=== PATIENT | female | born 1975 | race Caucasian/White ===

== ENCOUNTER → 2023-07-08 07:41 | Outpatient (REF) | payer OTHER, SELFPAY ==
[2023-07-08 08:28] LABS: % Basophils 0.4 % (0-2); % Eosinophils 4.3 % (0-6); % Immature Granulocytes 0.4 % (0-0.5); % Lymphocytes 37.1 % (20.5-51.1); % Monocytes 9.9 % (1.7-9.3); % Neutrophils 47.9 % (42.2-75.2); Absolute Eosinophils 0.2 10^3/uL (0-0.7); Absolute Lymphocytes 1.8 10^3/uL (1.2-3.4); Absolute Monocytes 0.5 10^3/uL (0.1-0.6); Absolute Neutrophils 2.4 10^3/uL (1.4-6.5); Hematocrit 40.8 % (37.0-47.0); Hemoglobin 13.6 g/dL (12.0-16.0); Mean Corp Hgb Conc. 33.3 g/dL (33.0-37.0); Mean Corpuscular Hgb 30.6 pg (27.0-31.0); Mean Corpuscular Volume 91.9 fL (81.0-99.0); Mean Platelet Volume 10.9 fL (7.4-10.4); Nucleated Red Blood Cells % 0 %; Platelet Count 251 10^3/uL (130-400); Red Blood Cell Count 4.44 10^6/uL (4.20-5.40); Red Cell Dist. Width 11.6 % (11.5-14.5); White Blood Cell Count 4.9 10^3/uL (4.8-10.8)
[2023-07-08 09:06] LABS: ALT (SGPT) 15 U/L (0-35); AST (SGOT) 25 U/L (14-36); Albumin 4.1 g/dl (3.5-5.0); Alkaline Phosphatase 73 U/L (38-126); Blood Urea Nitrogen 13 mg/dl (7-17); Calcium 9.3 mg/dl (8.4-10.2); Carbon Dioxide 28 mmol/L (22-30); Chloride 102 mmol/L (98-107); Glucose 84 mg/dl (70-99); HDL Cholesterol 76 mg/dl; LDL Cholesterol, Calculated 88 mg/dl; Potassium 4.4 mmol/L (3.5-5.1); Sodium 139 mmol/L (135-145); Total Bilirubin 0.5 mg/dl (0.2-1.3); Total Cholesterol 188 mg/dl (50-199); Total Protein 6.7 g/dl (6.3-8.2); Triglyceride 121 mg/dl (10-149); Very Low Density Lipoprotein 24 mg/dl (0-30); eGFR > 60.00
== END ==
LOC: REG 07:41
PROVIDERS: ATTENDING PHYSICIAN Family Medicine
DX: Z00.00 Encounter for general adult medical examination without abnormal findings (principal)
CPT/HCPCS: 36415; 80053; 80061; 85025

== ENCOUNTER 2023-07-30 17:03 | Outpatient (RCR) | payer OTHER, SELFPAY | END 2023-07-30 23:59 | disposition home or self-care (01) | LOC: ROT 17:03 | PROVIDERS: ATTENDING PHYSICIAN Family Medicine | DX: M77.11 Lateral epicondylitis, right elbow (principal); M77.12 Lateral epicondylitis, left elbow; Z73.6 Limitation of activities due to disability; M62.81 Muscle weakness (generalized) | CPT/HCPCS: 97010; 97035; 97110; 97140; 97166; 97535 ==

== ENCOUNTER → 2023-09-25 08:34 | Outpatient (REF) | payer OTHER, SELFPAY | LOC: WDC 08:34 | PROVIDERS: ATTENDING PHYSICIAN Family Medicine | DX: Z12.31 Encounter for screening mammogram for malignant neoplasm of breast (principal) | CPT/HCPCS: 77063; 77067 ==

== ENCOUNTER → 2023-10-03 08:18 | Outpatient (REF) | payer OTHER, SELFPAY | LOC: WDC 08:18 | PROVIDERS: ATTENDING PHYSICIAN Family Medicine | DX: R92.8 Other abnormal and inconclusive findings on diagnostic imaging of breast (principal) | CPT/HCPCS: 76642 ==

== ENCOUNTER 2024-09-25 18:42 | Emergency (ER) | payer OTHER, SELFPAY ==
[2024-09-25 18:49] VITALS: BP 131/66
[2024-09-25 18:54] VITALS: BP 141/75
[2024-09-25 18:56] VITALS: BMI 25.9
[2024-09-25 19:15] LABS: % Basophils 0.5 % (0-2); % Eosinophils 2.4 % (0-6); % Immature Granulocytes 0.2 % (0-0.5); % Lymphocytes 46.2 % (20.5-51.1); % Monocytes 7.4 % (1.7-9.3); % Neutrophils 43.3 % (42.2-75.2); Absolute Eosinophils 0.2 10^3/uL (0-0.7); Absolute Lymphocytes 2.9 10^3/uL (1.2-3.4); Absolute Monocytes 0.5 10^3/uL (0.1-0.6); Absolute Neutrophils 2.7 10^3/uL (1.4-6.5); Hematocrit 38.1 % (37.0-47.0); Hemoglobin 13.5 g/dL (12.0-16.0); Mean Corp Hgb Conc. 35.4 g/dL (33.0-37.0); Mean Corpuscular Hgb 30.8 pg (27.0-31.0); Mean Corpuscular Volume 86.8 fL (81.0-99.0); Mean Platelet Volume 10.2 fL (7.4-10.4); Nucleated Red Blood Cells % 0 %; Platelet Count 255 10^3/uL (130-400); Red Blood Cell Count 4.39 10^6/uL (4.20-5.40); Red Cell Dist. Width 11.5 % (11.5-14.5); White Blood Cell Count 6.2 10^3/uL (4.8-10.8)
--- NOTE | 2024-09-25 19:23 | ED.GENMED ---
History of Present Illness
General
Chief Complaint: Chest Pain
Source: patient and spouse
Time Seen by Provider: 09/25/24 19:07
History of Present Illness
History of Present Illness:
This patient is a 49-year-old female who states that she had a 'busy' day today doing housework, but felt well throughout the day. She was sitting down or approximately 615 tonight and when she stood up she felt the somewhat sudden onset of 'sharp'
pain in the left side of her chest that went to the center part of her chest rated 5 out of 10. She looked at her watch, and the rhythm suggested sinus. She took Tums and went upstairs to lay down, checked her rhythm again on the watch and it read
'A-fib'. This made her very concerned, which prompted her visit here. Since arrival she is now pain-free and feels asymptomatic. She did state that while she was in triage she had a momentary episode where she felt hot and sweaty and heart rate
at that time was reportedly low, lasting less than a minute and now fully resolved. She thinks she might have been 'panicky'. She denies back pain, neck pain, headache, dizziness, dyspnea, leg swelling, recent immobilization, recent trauma,
abdominal pain, nausea, vomiting. Patient denies family history of DVT. Her brother was diagnosed with CAD at the age of 53. Patient states that she had a 'ultrasound to look at the blood to my heart', which was completely normal, reportedly
performed last year.
Past History
Past History
ED Past Medical History: Other (IBS, anxiety)
ED Past Surgical History: Gynecological, Orthopedic and Other (Benign breast tumor removal)
Social History
Tobacco: Non-smoker
Alcohol: None
Drug: None
Personal:
Living: with family
Employment: Employed
Family History
Family History: Hypertension
Phy Exam
Physical Exam
Physical Exam:
GENERAL: Alert , in no apparent distress
EYE: pupils equal and reactive
NECK: Supple, no significant adenopathy.
ENT: o/p clr, mmm.
CARDIAC: Regular rate and rhythm .
LUNGS: Clear breath sounds bilaterally, no acute respiratory distress, no wheezes/rales/rhonchi
ABDOMEN: Soft, without focal tenderness, no r/g, no cvat
NEUROLOGICAL: Alert and oriented, no focal neuro deficits
SKIN: Warm and dry, skin intact.
MUSCULOSKELETAL: No edema, well perfused.
PSYCH: Normal and appropriate interaction.
Scores
Heart Score for Chest Pain Patients
STEMI patient?: Not applicable
Course
Orders/Labs/Results
Orders:
Orders
09/25/24 18:43
Electrocardiogram (*1) Urgent
Reason for Study: Chest Pain
EKG- Treatment ONCE
09/25/24 18:57
EKG [Electrocardiogram (*1)] Urgent
Reason for Study: Chest Pain
EKG- Treatment ONCE
09/25/24 19:08
Complete Blood Count/With Diff Urgent
Comprehensive Metabolic Panel Urgent
Troponin I Urgent
09/25/24 20:08
CT Chest Angio W/wo Iv Contras Urgent
Comment:
Reason For Exam: sudden cp
09/25/24 22:13
Troponin I Urgent
Abnormal Lab Results
09/25/24
19:08
Chloride 110 H mmol/L
(98-107)
Glucose 108 H mg/dl
(70-99)
09/25/24 19:08
09/25/24 19:08
Vital Signs
Initial and Last Documented VS:
Initial Vital Signs
Pulse Resp BP Pulse Ox
36 18 131/66 100
09/25/24 18:49 09/25/24 18:49 09/25/24 18:49 09/25/24 18:49
Last Documented Vital Signs
Temp Pulse Resp BP Pulse Ox
97.2 F 71 13 117/72 99
09/25/24 22:56 09/25/24 23:00 09/25/24 23:00 09/25/24 23:00 09/25/24 23:00
*Pulse Oximetry
SaO2: 100
Oxygen Mode of Delivery: Room air
*Critical Care Note
Total Time (30-74mins, 75-104mins- exclusive of procedures): Not Applicable
Update Note
Update Note:
Patient presents to the Emergency Department with _chest pain
Number and Complexity of Problems Addressed at the Encounter
� Chronic conditions affecting care:
� Acute Exacerbation and/or Progression of Chronic Illness:
� Differential Diagnosis includes: But not limited to ACS, dissection, pleurisy, pneumothorax, anxiety, musculoskeletal pain, etc. etc.
Amount and/or Complexity of Data to be Reviewed and Analyzed
� I performed an independent evaluation of and my interpretation is:
EKG: Read by me, normal sinus rhythm, normal rate, PVC noted, no acute ischemia
CT: Small hiatal hernia.
2. Small left posterior diaphragmatic hernia.
3. Mild biapical lung scarring.
Xrays:
Laboratory Studies: Generally unremarkable, troponin x 2 negative
Other:
� Review of other/old records reveals:
� Clinical information was obtained by an independent historian: who is bedside
� Prescriptions/Medications Considered but not given:
� Further testing considered but not performed: Consider D-dimer however patient does not have identifiable risk factors. Pain is not pleuritic in nature, no associated dyspnea, etc.
Risk of Complications and/or Morbidity or Mortality of Patient Management
� Social determinants of health affecting care:
� Discussion with other providers (PCP, Hospitalists, Consultants, etc):
� Escalation of care including admission/observation vs risk of discharge considered: Patient given copy of CAT scan report and advised regarding follow-up for incidental findings. Remains pain-free here. Workup unremarkable.
Discussed with patient portance of follow-up and reasons return to the ER.
ED Attending Note
-
Portions of this chart may have been created with voice recognition software.� Occasional wrong word or��sound alike� substitutions may have occurred due to the inherent limitations of voice recognition software.
Discharge Plan
Departure
Patient Disposition: Home (Routine Discharge)
Date of Disposition: 09/25/24
Time of Disposition: 22:53
Patient with high blood pressure during this ER visit?: Yes
Condition: Good
Discharge Problem:
Chest pain
Instructions: Chest Pain PCP Follow Up, BLOOD PRESSURE
Prescriptions:
No Action
loratadine 10 MG tablet
10 mg PO DAILY PRN (Reason: allergies)
multivitamin with folic acid [Tab-A-Dulce] 1 TABLET tablet
1 tab PO HS
loperamide [Imodium] 2 mg Capsule
2 mg PO DAILYPRN PRN (Reason: diarrhea)
ibuprofen [Advil] 200 mg Tablet
200 - 400 mg PO DAILYPRN PRN (Reason: mild pain)
calcium carbonate [Calcium 500] 500 mg calcium (1,250 mg) Tablet,Chewable
500 mg PO HS
escitalopram oxalate 10 mg Tablet
10 mg PO HS
Referrals:
Carmina Oneal MD [Family Provider, Family Practice] - Next open appointment
Activity Restrictions/Additional Instructions:
IF YOU DEVELOP RECURRENT OR NEW PAIN, TROUBLE BREATHING, FEVER, NECK PAIN, HEADACHE, DIZZINESS, OR OTHER WORRISOME SIGNS, PLEASE RETURN TO THE ER IMMEDIATELY EXCLAMATION
Interventions
Interventions:
*Risk Screen - Suicide Last Done: 09/25/24 23:16
*General Assessment Last Done: 09/25/24 18:49
*Neglect/Abuse Screening Last Done: 09/25/24 18:49
*ED- Fall Risk Assessment Last Done: 09/25/24 18:49
*ED COVID-19 Vaccine History Last Done: 09/25/24 18:49
*Nursing Disposition Last Done: 09/25/24 23:16
ED- Cardiac Assessment Last Done: 09/25/24 19:24
Discharge Date and Time
Discharge Date/Time: 09/25/24 23:17
Print Language: [id number]
[2024-09-25 19:33] LABS: ALT (SGPT) 16 U/L (0-35); AST (SGOT) 26 U/L (14-36); Albumin 4.6 g/dl (3.5-5.0); Alkaline Phosphatase 86 U/L (38-126); Blood Urea Nitrogen 14 mg/dl (7-17); Calcium 9.6 mg/dl (8.4-10.2); Carbon Dioxide 24 mmol/L (22-30); Chloride 110 mmol/L (98-107); Estimated Creatinine Clearance 72 ml/min; Glucose 108 mg/dl (70-99); Potassium 3.9 mmol/L (3.5-5.1); Sodium 139 mmol/L (135-145); Total Bilirubin 0.4 mg/dl (0.2-1.3); Total Protein 7.2 g/dl (6.3-8.2); eGFR > 60.00
[2024-09-25 19:57] LABS: Troponin I < 0.012 ng/ml
[2024-09-25 20:00] VITALS: BP 134/76
[2024-09-25 21:00] VITALS: BP 128/56
[2024-09-25 22:00] VITALS: BP 116/59
[2024-09-25 22:44] LABS: Troponin I < 0.012 ng/ml
[2024-09-25 23:00] VITALS: BP 117/72
== END 2024-09-25 23:17 | disposition home or self-care (01) ==
LOC: EMR 18:42
PROVIDERS: Student in an Organized Health Care Education/Training Program; EMERGENCY PHYSICIAN Emergency Medicine; FAMILY PHYSICIAN Family Medicine
DX: R07.89 Other chest pain (principal); F41.9 Anxiety disorder, unspecified; I48.91 Unspecified atrial fibrillation; K58.9 Irritable bowel syndrome, unspecified; Z82.49 Family history of ischemic heart disease and other diseases of the circulatory system
CPT/HCPCS: 99284; 71275; 80053; 84484; 85025; 93005; Q9967

== ENCOUNTER → 2025-01-16 09:43 | Outpatient (REF) | payer OTHER, SELFPAY | LOC: WDC 09:43 | PROVIDERS: ATTENDING PHYSICIAN Obstetrics & Gynecology Gynecology; FAMILY PHYSICIAN Family Medicine | DX: Z12.31 Encounter for screening mammogram for malignant neoplasm of breast (principal) | CPT/HCPCS: 77063; 77067 ==